=== PATIENT | male | born 1945 | race Caucasian/White ===

== ENCOUNTER → 2021-01-25 10:11 | Outpatient (BNVA) | payer OTHER, SELFPAY | PROVIDERS: Family Provider Emergency Medicine Emergency Medical Services; PCP Emergency Medicine Emergency Medical Services; Visit Provider Specialist | DX: G20 Parkinson's disease (principal); Z87.891 Personal history of nicotine dependence | CPT/HCPCS: 99214; 99215 ==

== ENCOUNTER → 2021-08-02 10:49 | Outpatient (BNVA) | payer OTHER, SELFPAY | PROVIDERS: Family Provider Emergency Medicine Emergency Medical Services; PCP Emergency Medicine Emergency Medical Services; Visit Provider Specialist | DX: G20 Parkinson's disease (principal) | CPT/HCPCS: 99214 ==

== ENCOUNTER 2022-05-22 08:54 | Day surgery (SDC) | payer OTHER, SELFPAY ==
[2022-05-22 06:33] VITALS: BMI 22.6
--- NOTE | 2022-05-22 08:32 | W.PM.OPSFHP ---
Same Day Surgery H&P Indication for Procedure/HPI DATE OF PROCEDURE: May 22, 2022 CHIEF COMPLAINT/INDICATIONFOR SURGICAL PROCEDURE: Change in bowel habit and WL. PREOP DIAGNOSIS: Change in BH and WL. PLANNED PROCEDURE: Operation Date: 05/22/22 10:30 Proposed Procedures p EGD and colonoscopy [id number],R68.81,R63.4,R19.8(Not Applicable) - Alfredo Gann MD s Colonoscopy(Not Applicable) - Alfredo Gann MD Medications/Allergies* Home Medications Medication Instructions Recorded Confirmed Type tamsulosin 0.4 mg capsule 0.4 mg PO DAILY 01/25/21 05/22/22 History carboxymethylcellulose sodium 0.5 1 drp OPHTHALMIC (EYE) QID PRN 03/24/22 05/22/22 History % eye drops in a dropperette docusate sodium 100 mg capsule 100 mg PO TID PRN cap 03/24/22 05/22/22 History Lactobacillus rhamnosus GG 20 1 cell PO DAILY cap 05/02/22 05/22/22 History billion cell capsule (Probiotic Digestive Care) calcium polycarbophil 625 mg tablet 1,250 mg PO DAILY 05/02/22 05/22/22 History meclizine 25 mg chewable tablet 25 mg PO DAILY PRN 05/02/22 05/22/22 History melatonin 10 mg capsule 10 mg PO .at bedtime PRN cap 05/02/22 05/22/22 History ibuprofen 200 mg tablet 400 mg PO Q6H PRN 05/22/22 05/22/22 History ketoconazole 2 % topical cream 1 applic TOPICAL BID PRN 05/22/22 05/22/22 History Allergies/Adverse Reactions Allergy/AdvReac Type Severity Reaction Status Date / Time No Known Allergies Allergy Verified 05/02/22 13:33 Pertinent History/Comorbid Conditions* Medical History (Updated 05/02/22 @ 14:11 by Alfredo Gann MD) History of malignant melanoma Parkinson disease Surgical History (Updated 02/03/21 @ 16:14 by Marleny Chatman DO) No pertinent past surgical history Family History (Updated 01/25/21 @ 10:41 by Ramila Bonds) Father Mother Cancer Mother Father Social History Smoking and tobacco status: former smoker Quit status (tobacco): has quit using tobacco Year quit tobacco: 2002 Alcohol intake: current Alcohol intake frequency: holidays/special occasions only Alcohol type: beer and wine History of recent travel: No Pertinent Exam Findings alert, oriented x 3, clear to auscultation bilaterally, regular rate & rhythm, operative site marked and procedure specific exam findings Recommendations Surgery/Procedure today Coding Level of Care Code Acute Parking Enforcement Officer for Caitlin Hollingsworth
--- NOTE | 2022-05-22 09:22 | ANES.PREANE2 ---
Pre-Anesthetic Assessment Height/Weight: Height 1.8 m Weight 73.482 kg Preop Diagnosis: WL early satiety and change in BH. Operation Date: 05/22/22 10:30 Proposed Procedures p EGD and colonoscopy [id number],R68.81,R63.4,R19.8(Not Applicable) - Alfredo Gann MD s Colonoscopy(Not Applicable) - Alfredo Gann MD Was Beta Judith taken within 24 hours: N/A Was Clonidine taken within 24 hours: N/A Social No alcohol and No tobacco Exam alert, oriented x 3, clear to auscultation bilaterally and regular rate & rhythm Airway Submandibular: within normal limits Cervical ROM: within normal limits Mallampati: Class II Dentition: chipped Pulmonary None reported CV/HEM None reported METS > 4 None reported Hepatic None reported GI None reported Metabolic None reported Musc/skel Abnormal weight loss with early satiety Neuropsych Parkinsons vs essential tremor per patient Anesthetic Plan ASA status: 3 Anesthesia: Anesthesia Evaluation, General and MAC Other: I discussed with the patient risks, goals, and benefits of MAC and general anesthesia. We discussed spectrum of MAC anesthesia including conversion to general as well as possibility of recall of intraoperative stimuli including discomfort/pain. Patient agrees to proceed with MAC. Risk of > 500 ml blood loss (7ml/kg in children): No Medications/Allergies Home Medications Medication Instructions Recorded Confirmed Last Taken Type tamsulosin 0.4 mg capsule 0.4 mg PO DAILY 01/25/21 05/22/22 05/21/22 History carbidopa 25 mg-levodopa 100 mg 1 tab PO TID #360 tab 08/02/21 05/22/22 05/21/22 Rx tablet carboxymethylcellulose sodium 0.5 1 drp OPHTHALMIC (EYE) QID PRN 03/24/22 05/22/22 05/21/22 History % eye drops in a dropperette docusate sodium 100 mg capsule 100 mg PO TID PRN cap 03/24/22 05/22/22 05/21/22 History Lactobacillus rhamnosus GG 20 1 cell PO DAILY cap 05/02/22 05/22/22 05/21/22 History billion cell capsule (Probiotic Digestive Care) calcium polycarbophil 625 mg tablet 1,250 mg PO DAILY 05/02/22 05/22/22 05/21/22 History meclizine 25 mg chewable tablet 25 mg PO DAILY PRN 05/02/22 05/22/22 05/21/22 History melatonin 10 mg capsule 10 mg PO .at bedtime PRN cap 05/02/22 05/22/22 05/21/22 History ibuprofen 200 mg tablet 400 mg PO Q6H PRN 05/22/22 05/22/22 05/21/22 History ketoconazole 2 % topical cream 1 applic TOPICAL BID PRN 05/22/22 05/22/22 05/21/22 History Allergies Allergy/AdvReac Type Severity Reaction Status Date / Time No Known Allergies Allergy Verified 05/22/22 09:31 [facility] Anesthesia Medical History History of malignant melanoma Parkinson disease Surgical History No pertinent past surgical history Family History Mother Cancer Father Cancer Social History Smoking and tobacco status: former smoker Quit status (tobacco): has quit using tobacco Year quit tobacco: 2002 Alcohol intake: current Alcohol intake frequency: holidays/special occasions only Alcohol type: beer and wine History of recent travel: No Data Anesthesia Cardiac Studies: No Data to Display
[2022-05-22 09:54] VITALS: BP 120/77; PULSE 62; RESP 18; TEMP 37.1; O2SAT 99
[2022-05-22] MEDS: sodium chloride 0.9% 1,000 ML 30 ML IV (09:55)
[2022-05-22 11:36] VITALS: BP 109/69; PULSE 52; RESP 16; TEMP 36.3; O2SAT 99
--- NOTE | 2022-05-22 11:38 | ANE.PACU2 ---
Documented by User: Mulu Wright CRNA 05/22/22 11:38 Inpatient post-anesthesia follow up: Airway intact: Yes Vital signs: Temperature 98.8 F Pulse Rate 62 Respiratory Rate 18 Blood Pressure 120/77 Pulse Oximetry 99 Oxygen Delivery Me thod Room Air Oxygen Flow Rate Fraction of Inspir ed Oxygen Hydration adequate: Yes Nausea and vomiting: No Pain level: 1 Mental status: Baseline
[2022-05-22 11:44] VITALS: BP 111/69; PULSE 53; RESP 16; O2SAT 96
[2022-05-22 11:52] VITALS: BP 116/82; PULSE 55; RESP 16; O2SAT 99
== END 2022-05-22 12:00 | disposition home or self-care (01) ==
PROVIDERS: PCP Emergency Medicine Emergency Medical Services; Visit Provider Internal Medicine
PROC: 0DJ08ZZ Inspection of Upper Intestinal Tract, Via Natural or Artificial Opening Endoscopic (ICD-10-PCS; CPT 43235; principal; 2022-05-22 10:30)
PROC: 0DJD8ZZ Inspection of Lower Intestinal Tract, Via Natural or Artificial Opening Endoscopic (ICD-10-PCS; CPT 45378; 2022-05-22 10:30)
DX: R19.4 Change in bowel habit (principal); R63.4 Abnormal weight loss; R68.81 Early satiety; K57.30 Diverticulosis of large intestine without perforation or abscess without bleeding; Z87.891 Personal history of nicotine dependence
CPT/HCPCS: 43235; 45378; J2704; J7030

== ENCOUNTER 2022-06-23 10:38 | Emergency (ER) | payer OTHER, SELFPAY ==
[2022-06-23 11:32] VITALS: BP 130/73; PULSE 55; RESP 16; TEMP 36.6; O2SAT 98; BMI 20.9
--- NOTE | 2022-06-23 12:36 | ED_ITS ---
HPI - Male Genitourinary General: Chief complaint: Urogenital-Male Stated complaint: trouble urinating Time Seen by Provider: 06/23/22 12:12 Source: patient Mode of arrival: ambulatory Limitations: no limitations History of Present Illness: 76-year-old male who states that he has been having difficulty urinating over the last 3 to 4 days he states that he is having very hard time overnight states he was unable to urinate overnight but was able to urinate again this morning he states he was having some pain overnight his pain is improved he is had some dysuria is concerned about a possible infection. He denies any fevers he denies any worsening improving factors denies any abdominal pain currently. Associated symptoms: Reports dysuria; Deny nausea or vomiting Review of Systems Const: Denies: fever(s), chills, body aches or change in appetite Eyes: Denies: blurry vision or eye discomfort ENMT: Denies: throat pain or dental pain Card: Denies: chest pain Resp: Denies: dyspnea GI: Denies: abdominal pain, nausea, vomiting or diarrhea : Reports: difficulty urinating, dysuria and urinary hesitancy Musc: Denies: neck pain or back pain Skin/Breast: Denies: rash Neuro: Denies: headache(s) Psych: Denies: depression Nayan/Lymph: Denies: easy bruising All/Imm: Denies: urticaria PFSH ED PFSH: Medical History History of malignant melanoma Parkinson disease Surgical History No pertinent past surgical history Family History Mother Cancer Father Cancer Social History Smoking and tobacco status: former smoker Quit status (tobacco): has quit using tobacco Year quit tobacco: 2002 Alcohol intake: current Alcohol intake frequency: holidays/special occasions only Alcohol type: beer and wine History of recent travel: No Physical Exam Const: COMMON NORMALS: no acute distress, patient oriented x3 and healthy appearing HENMT: COMMON NORMALS: normocephalic and atraumatic HEAD & SCALP: normocephalic and atraumatic Eye: COMMON NORMALS: Equal, round and reactive pupils present and EOMs intact bilaterally PUPIL: Yes Equal, round and reactive pupils present Neck/C-Spine: COMMON NORMALS: full ROM and supple Chest: COMMONS NORMALS: normal inspection of the chest and normal palpation of entire chest wall Resp: COMMON NORMALS: normal respiratory effort, No retractions, No use of accessory muscles and clear to auscultation bilaterally AUSCULTATION: clear to auscultation bilaterally Cardio: COMMON NORMALS: regular rate, regular rhythm and No murmurs present (Cardio) RATE: regular rate RHYTHM: regular rhythm GI: COMMON NORMALS: Normal to inspection, nondistended, normoactive bowel sounds present, Soft to palpation, non-tender and no masses PALPATION: Yes Soft to palpation Extremity: COMMON NORMALS: normal to inspection and full ROM Neuro: COMMON NORMALS: patient oriented x3, moves all extremities and no focal motor deficits Psych: COMMON NORMALS: mental status grossly normal, Normal thought process present and cooperative THOUGHT PROCESS: Normal thought process present Skin: COMMON NORMALS: no rashes or lesions noted and no wounds GENERAL SKIN EXAM: no rashes or lesions noted Course Vital Signs: Vital signs: Vital Signs Temperature 97.8 F 06/23/22 11:32 Pulse Rate 55 L 06/23/22 11:32 Respiratory Rate 16 06/23/22 11:32 Blood Pressure 116/80 06/23/22 12:48 Pulse Oximetry 98 06/23/22 11:32 MDM - Male Medical Decision Making Patient presents here with trouble urinating was able to urinate today he already takes Flomax he is continue take it has a possible UTI we will start him on antibiotics we will get him follow-up with urology as well this is likely prostate related he has no retention here he is well-appearing here Lab Data Laboratory Results Urine Color Yellow (Yellow) 06/23/22 12:26 Urine Appearance Clear (CLEAR) 06/23/22 12:26 Urine pH 7 (5-7) 06/23/22 12:26 Ur Specific [place] 1.005 (1.005-1.030) 06/23/22 12:26 Urine Protein Neg (Negative) 06/23/22 12:26 Urine Glucose (UA) Norm (Normal) 06/23/22 12:26 Urine Ketones Negative (Negative) 06/23/22 12:26 Urine Blood Neg (Negative) 06/23/22 12:26 Urine Nitrate Negative (Negative) 06/23/22 12:26 Urine Bilirubin Neg (Negative) 06/23/22 12:26 Urine Urobilinogen Norm mg/dL (Negative) 06/23/22 12:26 Ur Leukocyte Esterase 2+ (Negative) H 06/23/22 12:26 Urine RBC Rare /hpf (0-2) 06/23/22 12:26 Urine WBC 5-10 /hpf (0-5) H 06/23/22 12:26 Ur Squamous Epith Cells Rare /hpf (0-5) 06/23/22 12:26 Amorphous Sediment Not Reportable 06/23/22 12: Urine Bacteria Trace /hpf (NONE) 06/23/22 12:26 Discharge Plan Discharge Patient Disposition: Home Clinical Impression: Urinary tract infection, Urinary hesitancy Condition: Stable Prescriptions: New Flomax 0.4 mg capsule 0.4 mg PO DAILY Qty: 14 0RF No Action tamsulosin 0.4 mg capsule 0.4 mg PO DAILY carbidopa-levodopa 25-100 mg tablet 1 tab PO TID Qty: 360 3RF Rx Instructions: 2 in the morning, 1 at noon, 1 in the afternoon calcium polycarbophil 625 mg tablet 1,250 mg PO DAILY Probiotic Digestive Care 20 billion cell capsule 1 cell PO DAILY meclizine 25 mg tablet,chewable 25 mg PO DAILY PRN (Reason: Dizziness) melatonin 10 mg capsule 10 mg PO .at bedtime PRN (Reason: Sleep) carboxymethylcellulose sodium 0.5 % dropperette 1 drp ophthalmic (eye) QID PRN (Reason: Dry Eye(S)) docusate sodium 100 mg capsule 100 mg PO TID PRN (Reason: Constipation) ibuprofen 200 mg Tablet 400 mg PO Q6H PRN (Reason: Pain) ketoconazole 2 % cream 1 applic topical BID PRN (Reason: Rash) Rx Instructions: Apply to pink, scaly areas on face BID x 3 weeks then daily prn Discharge Orders: Discharge ED (Routine); Ordered 06/23/22 Ordered By: Violeta Leslie Referrals: Brian Almaraz MD [Physician] - 1-3 days Kedar Reyes DO [Primary Care Provider] - Discharge Diet: Advance as tolerated Discharge Activity: Resume usual activity Patient Instructions: Urinary Tract Infection - Men Coding Level of Care Code ED Verification Specialist for Chg Fwd Exam Comprehensive
[2022-06-23 12:48] VITALS: BP 116/80
[2022-06-23 12:48] LABS: Add Urine Microscopic? YES; Bacteria Urine TRACE /hpf; Bilirubin Urine Neg (Negative); Blood Urine Neg (Negative); Glucose Urine UA Norm (Normal); Ketones Urine Negative (Negative); Leukocyte Esterase Urine 2+ (Negative); Nitrate Urine Negative (Negative); Protein Urine Neg (Negative); RBC Urine RARE /hpf (0-2); Specific Gravity, Urine 1.005 (1.005-1.030); Squamous Epithelial Cell Urine RARE /hpf (0-5); Urine Appearance Clear (CLEAR); Urine Color Yellow (Yellow); Urobilinogen Urine Norm (Negative); pH Urine 7 (5-7)
[2022-06-23 12:49] LABS: Add Urine Culture? No
[2022-06-23] MEDS: cephALEXin 500 mg Capsule PO (13:12)
--- NOTE | 2022-06-26 09:39 | DCPLANNER ---
Addendum entered by Paz Winston 08/03/22 07:50: Patient had follow up appointment scheduled with urology - patient did attend appointment. Addendum entered by Paz Winston 07/07/22 08:10: Patient has a follow up appointment scheduled for Tuesday August 02, 2022 at 8:00 with Leni Mclean at urology. Addendum entered by Paz Winston 06/26/22 09:43: Patient has [employer] insurance, leather case finisher sent patients information to Tonya with [employer] [facility] for the authorization process to be started. Original Note: manager plant had message to schedule a follow up appointment for patient with urology. manager plant sent patients information to the front office staff at urology. Patients information will be printed and reviewed. Clinic will call patient with appointment information.
== END 2022-06-23 13:14 | disposition home or self-care (01) ==
PROVIDERS: Emergency Provider Emergency Medicine; PCP Emergency Medicine Emergency Medical Services
DX: N39.0 Urinary tract infection, site not specified (principal); R39.11 Hesitancy of micturition; G20 Parkinson's disease; Z85.820 Personal history of malignant melanoma of skin; Z87.891 Personal history of nicotine dependence
CPT/HCPCS: 81001; 99283

== ENCOUNTER → 2022-08-02 07:29 | Outpatient (BNVA) | payer OTHER, SELFPAY | PROVIDERS: PCP Emergency Medicine Emergency Medical Services; Visit Provider Nurse Practitioner Family | DX: N40.1 Benign prostatic hyperplasia with lower urinary tract symptoms (principal) | CPT/HCPCS: 51741; 51798; 99203 ==

== ENCOUNTER → 2022-08-07 09:20 | Outpatient (BNVA) | payer OTHER, SELFPAY | PROVIDERS: PCP Emergency Medicine Emergency Medical Services; Visit Provider Nurse Practitioner Family | DX: N40.1 Benign prostatic hyperplasia with lower urinary tract symptoms (principal) | CPT/HCPCS: 81003 ==

== ENCOUNTER → 2022-08-14 08:34 | Outpatient (BNVA) | payer OTHER, SELFPAY | PROVIDERS: PCP Emergency Medicine Emergency Medical Services; Visit Provider Specialist | DX: G20 Parkinson's disease (principal); R26.89 Other abnormalities of gait and mobility; Z91.81 History of falling | CPT/HCPCS: 99214 ==

== ENCOUNTER → 2023-01-01 14:57 | Outpatient (BNVA) | payer OTHER, SELFPAY | PROVIDERS: PCP Emergency Medicine Emergency Medical Services; Visit Provider Urology | DX: N40.1 Benign prostatic hyperplasia with lower urinary tract symptoms (principal); K40.90 Unilateral inguinal hernia, without obstruction or gangrene, not specified as recurrent | CPT/HCPCS: 51741; 51798; 81003; 99213 ==

== ENCOUNTER → 2023-02-13 08:11 | Outpatient (BNVA) | payer OTHER, SELFPAY | PROVIDERS: PCP Emergency Medicine Emergency Medical Services; Visit Provider Specialist | DX: G20 Parkinson's disease (principal); F06.70 Mild neurocognitive disorder due to known physiological condition without behavioral disturbance | CPT/HCPCS: 96116; 99214 ==

== ENCOUNTER → 2023-06-19 08:27 | Outpatient (BNVA) | payer OTHER, SELFPAY | PROVIDERS: PCP Emergency Medicine Emergency Medical Services; Visit Provider Specialist | DX: G20 Parkinson's disease (principal); F06.70 Mild neurocognitive disorder due to known physiological condition without behavioral disturbance | CPT/HCPCS: 99213 ==

== ENCOUNTER → 2024-01-11 12:21 | Outpatient (BNVA) | payer OTHER, SELFPAY | PROVIDERS: PCP Emergency Medicine Emergency Medical Services; Visit Provider Specialist | DX: G20.A2 Parkinson's disease without dyskinesia, with fluctuations | CPT/HCPCS: 99214 ==

== ENCOUNTER → 2024-05-22 09:54 | Outpatient (BNVA) | payer OTHER, SELFPAY | PROVIDERS: PCP Emergency Medicine Emergency Medical Services; Referring Provider Emergency Medicine Emergency Medical Services; Visit Provider Physician Assistant | DX: M79.642 Pain in left hand (principal) | CPT/HCPCS: 73130; 99203 ==

== ENCOUNTER 2024-09-03 16:27 | Outpatient (CLI) | payer OTHER, SELFPAY ==
[2024-09-03 17:36] LABS: Basophils # 0.1 10^3/uL (0.0-0.1); Basophils % 1.4 %; Eosinophils # 0.2 10^3/uL (0.0-0.8); Eosinophils % 3.7 %; Hematocrit 40.7 % (37-53); Lymphocytes # 2.1 10^3/uL (0.8-4.8); Lymphocytes % 41.6 %; Mean Corpuscular HGB Conc 33.2 g/dL (30-55); Mean Corpuscular Hemoglobin 32.7 pg (27-33); Mean Corpuscular Volume 98.5 fl (82-101); Monocytes # 0.4 10^3/uL (0.2-0.9); Neutrophils # 2.32 10^3/uL (1.8-7.7); Neutrophils % 45.1 %; Nucleated Red Blood Cells % 0 %; Platelet Count 217 10^3/cmm (157-399); Red Blood Count 4.13 10^6/uL (3.85-5.65); Red Cell Distribution Width 13.4 % (12.1-15.1); White Blood Count 5.14 10^3/uL (3.29-11.43)
[2024-09-03 17:41] LABS: Erythrocyte Sedimentation Rate < 1 mm/hr (0-10)
[2024-09-03 18:20] LABS: 25 Hydroxy Vitamin D 38 ng/mL (30-100); Alanine Aminotransferase 7 U/L (0-41); Alkaline Phosphatase 84 U/L (40-130); Anion Gap 11.1 (5-19); Aspartate Amino Transferase 14 U/L (0-40); Blood Urea Nitrogen 24 mg/dL (8-23); Calcium 8.5 mg/dL (8.5-10.5); Carbon Dioxide 29 mmol/L (22-29); Chloride 103 mmol/L (98-107); Creatine Phosphokinase 27 U/L (39-308); Globulin 2.3 g/dL (1.3-4.6); Glucose 78 mg/dL (65-115); Osmolality Calculated 291 mOsm/kg (285-295); Potassium 4.1 mmol/L (3.5-5.1); Sodium 139 mmol/L (136-145); Total Bilirubin 0.6 mg/dL (0.15-1.2); Total Protein 6.3 g/dL (6.6-8.7); Vitamin B12 662 pg/mL (232-1245)
[2024-09-03 23:24] LABS: Free T4 Free Thyroxine 1.06 ng/dL (0.82-1.77)
== END 2024-09-03 16:28 | disposition home or self-care (01) ==
PROVIDERS: Absent Provider Specialist; PCP Emergency Medicine Emergency Medical Services; Visit Provider Urology
DX: R63.4 Abnormal weight loss (principal); N40.1 Benign prostatic hyperplasia with lower urinary tract symptoms; G20.A2 Parkinson's disease without dyskinesia, with fluctuations; M81.0 Age-related osteoporosis without current pathological fracture; M25.519 Pain in unspecified shoulder; Z68.21 Body mass index [BMI] 21.0-21.9, adult
CPT/HCPCS: 36415; 80053; 82306; 82550; 82607; 84153; 84439; 84443; 85025; 85651; 86160; 86162; 86235; 86255; 86376; 99215

== ENCOUNTER → 2025-01-14 12:42 | Outpatient (BNVA) | payer OTHER, SELFPAY | PROVIDERS: PCP Emergency Medicine Emergency Medical Services; Visit Provider Specialist | DX: G20.A2 Parkinson's disease without dyskinesia, with fluctuations (principal); G31.83 Neurocognitive disorder with Lewy bodies; F02.80 Dementia in other diseases classified elsewhere, unspecified severity, without behavioral disturbance, psychotic disturbance, mood disturbance, and anxiety | CPT/HCPCS: 99215 ==

== ENCOUNTER → 2025-07-20 09:12 | Outpatient (BNVA) | payer OTHER, SELFPAY | PROVIDERS: PCP Emergency Medicine Emergency Medical Services; Visit Provider Specialist | DX: G31.83 Neurocognitive disorder with Lewy bodies (principal); F02.B11 Dementia in other diseases classified elsewhere, moderate, with agitation | CPT/HCPCS: 99214 ==

== ENCOUNTER → 2025-10-30 09:00 | Outpatient (BNVA) | payer OTHER, SELFPAY | PROVIDERS: PCP Emergency Medicine Emergency Medical Services; Visit Provider Dermatology | DX: L82.1 Other seborrheic keratosis (principal); L21.8 Other seborrheic dermatitis; D48.5 Neoplasm of uncertain behavior of skin | CPT/HCPCS: 11102; 99203 ==